=== PATIENT | female | born 1975 | race Caucasian/White ===

== ENCOUNTER 2018-07-17 16:43 | Emergency (ER) | payer OTHER ==
[~2018-07-17] VITALS: Ht 160 cm; Wt 59.0 kg
[~2018-07-17 16:43] MED LIST: AZIT250 PO; GABA800 PO; MELA3 PO; Permethrin60 GM TP; TRIHYD253B PO; VENL150ER PO; VENL37.5 PO
== END 2018-07-17 18:51 | disposition home or self-care (01) ==
LOC: ER 16:43
DX: I80.01 Phlebitis and thrombophlebitis of superficial vessels of right lower extremity (principal); B07.0 Plantar wart; F32.9 Major depressive disorder, single episode, unspecified; F41.9 Anxiety disorder, unspecified; F17.210 Nicotine dependence, cigarettes, uncomplicated
CPT/HCPCS: 93971; 99284-25